=== PATIENT | male | born 1990 | race Caucasian/White ===

== ENCOUNTER 2017-07-11 21:01 | Emergency (ER) | payer OTHER ==
[2017-07-11 21:23] VITALS: BP 122/68; PULSE 54; RESP 20; TEMP 98.2; O2SAT 100
[2017-07-11] MEDS ORDERED: Tetanus/Diphtheria Toxoids 0.5 ml Syringe IM ONE ×2 (21:58→22:08)
--- NOTE | 2017-07-11 22:29 | C.PDOC ---
History Of Present Illness 26 year old male presents to the ER for evaluation of a laceration sustained to the left facial area today. States he was accidentally hit with a piece of metal to the left jaw, while at work. Denies any LOC, headache, dizziness, or vomiting. PMD: Unknown Time Seen by Provider: 07/11/17 21:42 Chief Complaint (Nursing): Abnormal Skin Integrity History Per: Patient History/Exam Limitations: no limitations Onset/Duration Of Symptoms: Hrs Current Symptoms Are (Timing): Still Present Past Medical History Reviewed: Historical Data, Nursing Documentation, Vital Signs Vital Signs: Last Vital Signs Temp 98.2 F 07/11/17 21:15 Pulse 54 L 07/11/17 21:15 Resp 20 07/11/17 22:57 BP 122/68 07/11/17 21:15 Pulse Ox 100 07/11/17 23:22 Surgical History: No Surg Hx Family History: States: No Known Family Hx - Social History Hx Alcohol Use: No Hx Substance Use: No - Immunization History Hx Tetanus Toxoid Vaccination: No Hx Influenza Vaccination: No Hx Pneumococcal Vaccination: No Review Of Systems Except As Marked, All Systems Reviewed And Found Negative. Gastrointestinal: Negative for: Vomiting Skin: Positive for: Other (laceration,left jaw) Neurological: Negative for: Weakness, Headache, Dizziness, Other (LOC) Physical Exam - Physical Exam Appears: Non-toxic, No Acute Distress Skin: Normal Color, Warm Head: Normacephalic, Laceration (2 cm superficial laceration to the left mandibular area. No deformity or hematoma) Eye(s): bilateral: Normal Inspection, PERRL, EOMI Oral Mucosa: Moist Teeth: Normal Dentition, No Loose, No Other (dental injury) Throat: Normal Neck: Normal ROM, Supple Neurological/Psych: Oriented x3, Normal Speech, Other (no focal deficits) ED Course And Treatment O2 Sat by Pulse Oximetry: 100 (RA) Pulse Ox Interpretation: Normal Progress Note: Tetanus booster given in ED. Laceration repaired without difficulty. Stable for discharge home. Counseled regarding wound care and advised to follow up for suture removal. Laceration - Laceration Repair Left mandible Wound Length (In cm): 2 Description Of Wound: Linear Wound Cleansed With: Sterile Saline Anesthesia: Lidocaine 1% Wound Examination: Irrigated With Saline Wound Closure: Suture (x5) Suture Technique And Material Used: Prolene (6:0) Wound Complexity: Simple Disposition Counseled Patient/Family Regarding: Diagnosis, Need For Followup - Disposition Referrals: [facility] [Outside] Disposition: HOME/ ROUTINE Disposition Time: 22:27 Condition: STABLE Additional Instructions: PLEASE FOLLOW UP WITH PMD IN 2 DAYS FOR WOUND CHECK SUTURE REMOVAL IN 7 DAYS RETURN TO ER IF WORSE Instructions: Care For Your Stitches (ED) Forms: [employer] (Hebrew) - Clinical Impression Clinical Impression: Facial laceration - PA / WILDLIFE ECOLOGIST / Resident Statement MD/DO has reviewed & agrees with the documentation as recorded. - Scribe Statement The provider has reviewed the documentation as recorded by the Scribe (Betsy Tam) All medical record entries made by the Scribe were at my direction and personally dictated by me. I have reviewed the chart and agree that the record accurately reflects my personal performance of the history, physical exam, medical decision making, and the department course for this patient. I have also personally directed, reviewed, and agree with the discharge instructions and disposition.
[2017-07-11] MEDS ORDERED: Bacitracin 500 Units/gm Oint Foilpak UD ONE (22:31)
== END 2017-07-11 22:57 | disposition home or self-care (01) ==
LOC: C.ER 21:01
DX: S01.412A Laceration without foreign body of left cheek and temporomandibular area, initial encounter (principal); W22.8XXA Striking against or struck by other objects, initial encounter; Y92.89 Other specified places as the place of occurrence of the external cause; Y99.0 Civilian activity done for income or pay; Z23 Encounter for immunization

== ENCOUNTER 2017-11-06 12:57 | Emergency (ER) | payer OTHER ==
[2017-11-06 13:24] VITALS: BP 111/68; PULSE 71; RESP 20; TEMP 99.6; O2SAT 99
--- NOTE | 2017-11-06 13:49 | C.PDOC ---
History Of Present Illness 26 year old male presents to the ED for evaluation of an area of pain and swelling to his left upper lip (area where he shaves his mustache) for two days. Patient also admits to chills. He denies known injuries to the area. Time Seen by Provider: 11/06/17 13:17 Chief Complaint (Nursing): Abnormal Skin Integrity History Per: Patient History/Exam Limitations: no limitations Onset/Duration Of Symptoms: Days (2) Current Symptoms Are (Timing): Still Present Quality Of Symptoms: Painful, Swollen Severity: Mild Additional History Per: Patient Past Medical History Reviewed: Historical Data, Nursing Documentation, Vital Signs Vital Signs: Last Vital Signs Temp 99.6 F 11/06/17 13:16 Pulse 71 11/06/17 13:16 Resp 20 11/06/17 13:16 BP 111/68 11/06/17 13:16 Pulse Ox 99 11/06/17 16:54 - Medical History PMH: No Chronic Diseases Surgical History: No Surg Hx Family History: States: No Known Family Hx - Social History Hx Alcohol Use: No Hx Substance Use: No - Immunization History Hx Tetanus Toxoid Vaccination: No Hx Influenza Vaccination: No Hx Pneumococcal Vaccination: No Review Of Systems Constitutional: Positive for: Chills. Negative for: Fever ENT: Positive for: Other (pain and swelling to left upper lip ) Respiratory: Negative for: Cough Skin: Positive for: Other (swelling, pain above upper lip). Negative for: Bruising Neurological: Negative for: Weakness Physical Exam - Physical Exam Appears: Well, Non-toxic, No Acute Distress Skin: Normal Color, Warm, Dry Eye(s): bilateral: Normal Inspection Nose: Normal Oral Mucosa: Moist Lips: Other (mild swelling above left upper lip with small central pustule. no discharge. non-vesicular ) Throat: Normal, No Erythema, No Exudate Neck: Supple Cardiovascular: Rhythm Regular Respiratory: Normal Breath Sounds, No Rales, No Rhonchi, No Wheezing Neurological/Psych: Oriented x3 Gait: Steady ED Course And Treatment O2 Sat by Pulse Oximetry: 99 (on RA) Pulse Ox Interpretation: Normal Progress Note: Patient given PO Motrin and Clindamycin in ED, and Rxs for same given. Patient also instructed to apply warm compresses to area, and to follow up with PMD/clinic in 1-2 days. He understands he should return to ED of symptoms worsen. Disposition Counseled Patient/Family Regarding: Diagnosis, Need For Followup, Rx Given - Disposition Referrals: [facility] [Outside] Disposition: HOME/ ROUTINE Disposition Time: 13:55 Condition: STABLE Additional Instructions: FOLLOW UP WITH YOUR DOCTOR/CLINIC IN 1-2 DAYS USE MEDICATIONS DIRECTED APPLY WARM COMPRESSES TO AREA SEVERAL TIMES DAILY RETURN TO EMERGENCY ROOM IF SYMPTOMS WORSEN SEGUIMIENTO CON SILVEIRA MDICO / CLNICA EN 1-2 GUERRERO USE MEDICAMENTOS SEGN LO INDICADO APLIQUE COMPRESAS CALIENTES AL YAN VARIAS VECES DIARIAMENTE REGRESE AL PATRICIA DE EMERGENCIA SI LOS SNTOMAS EMPEORAN Prescriptions: Clindamycin [Cleocin] 300 mg PO TID #21 cap Ibuprofen [Motrin Tab] 600 mg PO Q6 PRN #30 tab PRN Reason: fever/pain Instructions: Folliculitis (DC) Forms: [employer] (Upper Sorbian) Print Language: SOUTH SUDANESE - POA Present On Arrival: None - Clinical Impression Clinical Impression: Folliculitis - Scribe Statement The provider has reviewed the documentation as recorded by the Scribe (Erin Walter) Provider Attestation: All medical record entries made by the Scribe were at my direction and personally dictated by me. I have reviewed the chart and agree that the record accurately reflects my personal performance of the history, physical exam, medical decision making, and the department course for this patient. I have also personally directed, reviewed, and agree with the discharge instructions and disposition.
== END 2017-11-06 14:00 | disposition home or self-care (01) ==
LOC: C.ER 12:57
DX: L73.9 Follicular disorder, unspecified (principal)